=== PATIENT | male | born 1990 | race Hispanic/Latino ===

== ENCOUNTER → 2021-03-03 | Outpatient (CLI) | payer OTHER ==
[~2021-03-03] MED LIST: LIDOCAINE HCL 4% LTA SOL 4 ML VIAL ONE
== END | disposition home or self-care (01) ==
LOC: WHH 10:07
PROVIDERS: ATTEND Family Medicine
DX: L89.154 Pressure ulcer of sacral region, stage 4 (principal); E66.9 Obesity, unspecified; Z68.43 Body mass index [BMI] 50.0-59.9, adult
CPT/HCPCS: 97605; G0463

== ENCOUNTER → 2021-03-10 | Outpatient (CLI) | payer OTHER ==
[~2021-03-10] MED LIST changes: +SILVER NITRATE APPLICATOR 1 SWAB TP ONE
== END | disposition home or self-care (01) ==
LOC: WHH 10:30
PROVIDERS: ATTEND Family Medicine
DX: L89.154 Pressure ulcer of sacral region, stage 4 (principal); E66.9 Obesity, unspecified; J80 Acute respiratory distress syndrome; Z68.43 Body mass index [BMI] 50.0-59.9, adult
CPT/HCPCS: 11042; 97605

== ENCOUNTER → 2021-03-17 | Outpatient (CLI) | payer OTHER | END | disposition home or self-care (01) | LOC: WHH 11:05 | PROVIDERS: ATTEND Family Medicine | DX: L89.154 Pressure ulcer of sacral region, stage 4 (principal); E66.9 Obesity, unspecified; J80 Acute respiratory distress syndrome; Z68.43 Body mass index [BMI] 50.0-59.9, adult | CPT/HCPCS: 97605; G0463; 99214 ==

== ENCOUNTER → 2021-03-24 | Outpatient (CLI) | payer OTHER ==
[~2021-03-24] MED LIST changes: -SILVER NITRATE APPLICATOR 1 SWAB TP ONE
== END | disposition home or self-care (01) ==
LOC: WHH 11:01
PROVIDERS: ATTEND Family Medicine
DX: L89.154 Pressure ulcer of sacral region, stage 4 (principal); L98.411 Non-pressure chronic ulcer of buttock limited to breakdown of skin; E66.9 Obesity, unspecified; J80 Acute respiratory distress syndrome; Z68.43 Body mass index [BMI] 50.0-59.9, adult
CPT/HCPCS: 97605; G0463; 99214

== ENCOUNTER → 2021-03-31 | Outpatient (CLI) | payer OTHER | END | disposition home or self-care (01) | LOC: WHH 10:59 | PROVIDERS: ATTEND Family Medicine | DX: L89.154 Pressure ulcer of sacral region, stage 4 (principal); L98.411 Non-pressure chronic ulcer of buttock limited to breakdown of skin; E66.9 Obesity, unspecified; J80 Acute respiratory distress syndrome; Z68.43 Body mass index [BMI] 50.0-59.9, adult | CPT/HCPCS: 97605; G0463 ==

== ENCOUNTER → 2021-04-07 | Outpatient (CLI) | payer OTHER | END | disposition home or self-care (01) | LOC: WHH 11:07 | PROVIDERS: ATTEND Family Medicine | DX: L89.154 Pressure ulcer of sacral region, stage 4 (principal); L98.411 Non-pressure chronic ulcer of buttock limited to breakdown of skin; E66.9 Obesity, unspecified; J80 Acute respiratory distress syndrome; Z68.43 Body mass index [BMI] 50.0-59.9, adult | CPT/HCPCS: 97605; G0463 ==

== ENCOUNTER → 2021-04-14 | Outpatient (CLI) | payer OTHER | END | disposition home or self-care (01) | LOC: WHH 11:13 | PROVIDERS: ATTEND Family Medicine | DX: L89.154 Pressure ulcer of sacral region, stage 4 (principal); L98.411 Non-pressure chronic ulcer of buttock limited to breakdown of skin; E66.9 Obesity, unspecified; J80 Acute respiratory distress syndrome; Z68.43 Body mass index [BMI] 50.0-59.9, adult; Z87.01 Personal history of pneumonia (recurrent) | CPT/HCPCS: A4450; G0463 ==

== ENCOUNTER → 2021-04-21 | Outpatient (CLI) | payer OTHER | END | disposition home or self-care (01) | LOC: WHH 11:18 | PROVIDERS: ATTEND Family Medicine | DX: L89.154 Pressure ulcer of sacral region, stage 4 (principal); L98.411 Non-pressure chronic ulcer of buttock limited to breakdown of skin; E66.9 Obesity, unspecified; J80 Acute respiratory distress syndrome; Z68.43 Body mass index [BMI] 50.0-59.9, adult; Z87.01 Personal history of pneumonia (recurrent) | CPT/HCPCS: G0463 ==

== ENCOUNTER → 2021-05-19 | Outpatient (CLI) | payer OTHER | END | disposition home or self-care (01) | LOC: WHH 10:04 | PROVIDERS: ATTEND Family Medicine | DX: L89.154 Pressure ulcer of sacral region, stage 4 (principal); L84 Corns and callosities; E66.9 Obesity, unspecified; Z68.43 Body mass index [BMI] 50.0-59.9, adult; Z87.01 Personal history of pneumonia (recurrent); Z98.890 Other specified postprocedural states | CPT/HCPCS: 99214; G0463 ==

== ENCOUNTER → 2021-05-26 | Outpatient (CLI) | payer OTHER | END | disposition home or self-care (01) | LOC: WHH 10:04 | PROVIDERS: ATTEND Family Medicine | DX: L89.154 Pressure ulcer of sacral region, stage 4 (principal); E66.9 Obesity, unspecified; Z68.43 Body mass index [BMI] 50.0-59.9, adult; Z72.89 Other problems related to lifestyle; Z79.899 Other long term (current) drug therapy; Z98.890 Other specified postprocedural states | CPT/HCPCS: 11042 ==

== ENCOUNTER → 2021-06-02 | Outpatient (CLI) | payer OTHER | END | disposition home or self-care (01) | LOC: WHH 10:05 | PROVIDERS: ATTEND Family Medicine | DX: T81.89XA Other complications of procedures, not elsewhere classified, initial encounter (principal); L89.154 Pressure ulcer of sacral region, stage 4; E66.9 Obesity, unspecified; Z68.43 Body mass index [BMI] 50.0-59.9, adult; Z72.89 Other problems related to lifestyle; Z79.899 Other long term (current) drug therapy; Z98.890 Other specified postprocedural states; Y83.8 Other surgical procedures as the cause of abnormal reaction of the patient, or of later complication, without mention of misadventure at the time of the procedure; Y92.238 Other place in hospital as the place of occurrence of the external cause | CPT/HCPCS: 11042 ==